=== PATIENT | male | born 1955 | race Caucasian/White ===

== ENCOUNTER 2016-10-10 13:26 | Observation (INO) | payer OTHER ==
--- NOTE | ~2016-10-10 | HP ---
History And Physical [place] [address] [facility] [place]. [address] NAME: MILY NOBLE : 55 STATUS : ADM Eliot PAT#: [id number] AGE: 61 ADM/REG DATE : 10/10/16 MR#: [id number] REPORT SERV DATE: 10/11/16 DICTATED BY: FAIZA GÓMEZ DATE: 10/11/16 REPORT STATUS : Draft TRANSCRIBED BY: MODAung DATE: 10/11/16 DATE OF ADMISSION: 10/10/2016 PRIMARY CARE PROVIDER: Dr. Valencia, [facility] [place], [place]. PARTS DEPARTMENT SUPERVISOR: Otoniel Freitas M.D. CHIEF COMPLAINT: Atypical chest pain. HISTORY OF PRESENT ILLNESS: A very pleasant 61-year-old white gentleman with no known history of CAD, presents to our facility with chest pain since October 01, occurring in the morning at rest and episodic throughout the week. He describes it as a chest pain and pressure indicating as mid chest that at times has radiated to his left jaw, in his left shoulder, and right shoulder. He states that the discomfort worsened as the week progressed. On October 09, he describes his chest as being "on fire" for approximately 3 hours. He took 2 doses of Mylanta, but the discomfort did not subside for 3 hours. He rated his chest pain as 5/10 at its most intense. At the time of interview in the [facility], he rates it a 1/10. He describes it as a tightness. He reports no change in his activity. No exertional component. Denies any stressful or argumentative issues although he did recently lose his father. The patient denies any personal history of myocardial infarction, stroke, DVT, or pulmonary embolus. The patient recently was treated for strep with Levaquin. Denies palpitations. No syncopal episodes. Denies PND or orthopnea. PAST MEDICAL HISTORY: 1. Hypertension. 2. Cholesterol per PCP and reportedly (good). 3. Denies diabetes. 4. GERD. 5. Hypothyroid, on replacement. 6. Sleep apnea, inconsistent use of CPAP. 7. Anxiety. 8. Depression. PAST SURGICAL HISTORY: 1. Surya fundoplication. 2. Cyst removed from left testicle. 3. Tonsillectomy. SOCIAL HISTORY: He is with three children. He is retired from the [employer] in [place]. Does not have a structured exercise routine. Denies tobacco, alcohol, or illicits. FAMILY HISTORY: Father with CAD and CABG in his 50s, at the age of 87. Mother with stage IV Alzheimer's. Brother with Parkinson's. History And Physical [place] [id number] [place]. [address] NAME: MILY NOBLE : 55 STATUS : ADM Eliot PAT#: [id number] AGE: 61 ADM/REG DATE : 10/10/16 MR#: [id number] REPORT SERV DATE: 10/11/16 DICTATED BY: FAIZA GÓMEZ DATE: 10/11/16 REPORT STATUS : Draft TRANSCRIBED BY: BOYD DATE: 10/11/16 REVIEW OF SYSTEMS: A 14-point review of systems performed, significant for HPI. No other contributory diagnoses identified. ALLERGIES: PENICILLIN, ANAPHYLAXIS AND RASH. HOME MEDICATIONS: Aspirin 81 mg p.r.n., Levaquin 750 mg daily, levothyroxine 137 mcg daily, lisinopril 20 mg daily, Ativan 0.5 mg twice daily p.r.n., Medrol Dosepak complete, omeprazole 40 mg daily, Paxil 10 mg daily, Metamucil 3 times daily, vitamin C, vitamin B12, folic acid, Mitigare 0.6 daily p.r.n. gout, recent steroid injection, Zantac 150 mg 1/2 tablet twice daily. PHYSICAL EXAMINATION: VITAL SIGNS: Blood pressure 111/68, pulse 80, respirations 16, temperature 97.7, O2 saturation 95% on room air, height 6 feet 1 inch, weight 198 pounds, BMI 26. GENERAL: Cooperative, in no apparent distress. HEENT: Pupils 2 mm, sclera nonicteric. Nares patent. Moist mucous membranes. No xanthelasma. NECK: Trachea midline, no thyromegaly. No JVD. No bruits. LYMPH: No cervical lymphadenopathy. No supraclavicular lymphadenopathy. RESPIRATORY: Unlabored respirations. Breath sounds clear bilaterally to posterior auscultation. No wheezes or rhonchi. CARDIOVASCULAR: Regular rate. No murmur, rub or gallop appreciated. Extremities without edema. Pulses 2+ bilaterally. ABDOMEN: Soft, nontender, nondistended, normal bowel sounds auscultated throughout. No organomegaly. SKIN: Warm, dry extremities. No pallor, or cyanosis. PSYCHIATRIC: Appropriate affect. Alert, oriented x3. LABORATORY DATA: Troponin less than 0.02 x3, potassium 3.9, BUN 22, creatinine 1.21, glucose 80. WBC 10.4, hemoglobin 16.4, hematocrit 46.5, platelet count 197,000. EKG, sinus rhythm with LAD. Stress test, 06/2015: Tj stage 3, 8.5 minutes, 10 mets, no ischemia. Cath 2002 ([place]: Essentially normal coronaries with minimal luminal irregularities in the proximal LAD). ASSESSMENT AND PLAN: 1. Atypical chest pain. The patient has been observed in the CP[facility] overnight to rule out myocardial infarction with serial enzymes and serial EKGs and held n.p.o. We will proceed with MPI today. The patient will be discharged home if low risk, no ischemia. If anything suggestive of ischemia, Cardiology referral will be initiated, otherwise the patient would be asked to follow up with PCP and Dr. Freitas as appropriate. 2. Hypertension. Well controlled during this admission. Continue home medications. 3. Gastroesophageal reflux disease. Continue H2 blockers and/or PPI. History And Physical [address] [address] NAME: MILY NOBLE : 55 STATUS : ADM Eliot PAT#: [id number] AGE: 61 ADM/REG DATE : 10/10/16 MR#: [id number] REPORT SERV DATE: 10/11/16 DICTATED BY: FAIZA GÓMEZ DATE: 10/11/16 REPORT STATUS : Draft TRANSCRIBED BY: BOYD DATE: 10/11/16 SONIYA/BOYD Faiza Gómez, MSN, RECORDS AND TAPE RECORDINGS ENGINEER-BC / [id number]
[~2016-10-10 13:26] MED LIST: COLCRYS0.6 MG PO; PRILOSEC40 MG PO; PRIN20 PO; SYNTHROID137 MCG PO; VITAMIN D2 PO; VITAMIN D31000 UNIT PO
[2016-10-10 13:47] LABS: BASOPHILS 0.2 %; BASOPHILS ABSOLUTE 0.02 10/3/uL (0.0-0.16); EOSINOPHILS ABSOLUTE 0.21 10/3/uL (0.0-0.53); HEMATOCRIT 46.5 % (40.0-51.0); HEMOGLOBIN 16.4 g/dL (13.6-17.8); IMMATURE GRANULOCYTES 3.2 %; IMMATURE GRANULOCYTES ABSOLUTE 0.33 10/3/uL (0.0-0.11); LYMPHOCYTES 26.3 %; LYMPHOCYTES ABSOLUTE 2.72 10/3/uL (0.67-4.30); MEAN CORPUS HGB CONC 35.3 g/dL (32.0-36.0); MEAN CORPUSCULAR HEMOGLOB 30.9 pg (26.0-34.0); MEAN CORPUSCULAR VOLUME 87.7 fL (80-100); MEAN PLATELET VOLUME 8.5 fL (9.2-13.0); MONOCYTES 9.5 %; MONOCYTES ABSOLUTE 0.98 10/3/uL (0.21-1.20); NEUTROPHILS 58.8 %; PLATELET COUNT 197 10/3/uL (150-400); RBC DISTRIBUTION WIDTH 12.7 % (12.0-16.0)
[2016-10-10 13:49] LABS: ER CBC TAT 0 Hrs 05 Mins; MANUAL DIFF NO %; WHITE BLOOD CELLS 10.4 10/3/uL (4.5-10.5)
[2016-10-10 14:04] LABS: A/G RATIO 1.1 (0.7-1.9); ALBUMIN 3.7 G/DL (3.5-5.0); ALKALINE PHOSPHATASE 80 U/L (45-117); BUN (BLOOD UREA NITROGEN) 22 MG/DL (6-23); CALCIUM, SERUM 8.7 MG/DL (8.5-10.4); CHLORIDE, SERUM 105 MMOL/L (96-112); CO2 (CARBON DIOXIDE) 27 MMOL/L (24-34); CREATININE 1.21 MG/DL (0.70-1.30); GFR AFRICAN AMERICAN 74 ML/MIN (>=60); GFR NON AFRICAN AMERICAN 64 ML/MIN (>=60); GLOBULIN 3.3 G/DL (2.5-4.1); GLUCOSE, SERUM 80 MG/DL (60-99); POTASSIUM, SERUM 3.9 MMOL/L (3.5-5.3); SGOT(AST) 11 U/L (5-40); SGPT(ALT) 30 U/L (5-65); SODIUM, SERUM 140 MMOL/L (135-148); TOTAL BILIRUBIN 0.6 MG/DL (0-1.2); TROPONIN I <0.02 NG/ML (<0.05)
[2016-10-10] MEDS ORDERED: SYNTHROID137 MCG PO (16:22)
[2016-10-10] MEDS ORDERED: PRILOSEC40 MG PO (16:22)
[2016-10-10] MEDS ORDERED: PRIN20 PO (16:23)
[2016-10-10] MEDS ORDERED: METAMUCIL CAN7 OZ PO (16:24)
[2016-10-10] MEDS ORDERED: PAX10 PO (16:24)
[2016-10-10] MEDS ORDERED: LEVAQUIN750 MG PO (16:24)
[2016-10-10] MEDS ORDERED: OTC VITAMIN B-12 PO (16:25)
[2016-10-10] MEDS ORDERED: OTC VITAMIN C PO (16:25)
[2016-10-10] MEDS ORDERED: FOLIC ACID PO (16:26)
[2016-10-10] MEDS ORDERED: MITIGARE 0.6 MG PO (16:27)
[2016-10-10] MEDS ORDERED: ASAB PO (16:28)
[2016-10-10] MEDS ORDERED: MEDROLPAK4 PO (16:28)
[2016-10-10] MEDS ORDERED: STEROID INJECTION IM (16:29)
[2016-10-10] MEDS ORDERED: ATV.5 PO (16:29)
[2016-10-11] MEDS ORDERED: ZANTAC150 MG PO (15:14)
== END 2016-10-11 15:55 | disposition home or self-care (01) ==
LOC: ER 13:26 → CDU1 16:59
PROVIDERS: Emergency Medicine
DX: R07.89 Other chest pain (principal); I10 Essential (primary) hypertension; K21.9 Gastro-esophageal reflux disease without esophagitis; E03.9 Hypothyroidism, unspecified; G47.30 Sleep apnea, unspecified; F41.9 Anxiety disorder, unspecified; F32.9 Major depressive disorder, single episode, unspecified; Z98.890 Other specified postprocedural states; Z88.0 Allergy status to penicillin; Z88.8 Allergy status to other drugs, medicaments and biological substances; Z79.82 Long term (current) use of aspirin; Z79.899 Other long term (current) drug therapy
CPT/HCPCS: 71010; 78452; 80053; 84484; 85025; 93005; 93017; 99285; A9270-GY; A9502; G0378